=== PATIENT | male | born 1950 | race Caucasian/White ===

== ENCOUNTER 2017-11-26 22:29 | Emergency (ER) | payer OTHER ==
[2017-11-26] MEDS ORDERED: NA CHLORIDE 0.9% 500 ML ONE (23:06)
[2017-11-26 23:36] LABS: Potassium 3.5 mEq/L (3.6-5.0)
[2017-11-26 23:43] LABS: Absolute Lymphocytes (CBC) 1.2 K/uL (0.7-4.9); Absolute Monocytes 0.5 K/uL (0.1-1.3); Absolute Neutrophil 3.8 K/uL (1.8-8.0); Basophils % 0.9 % (0-1.3); Eosinophils % 4.8 % (0-4.4); Hematocrit 45.1 % (39.6-49.0); Lymphocytes % 20.6 % (15.3-44.8); MCH 30.9 pg (27.0-35.0); MCV 90.6 fL (80-100); MPV 7.3 fL (7.6-11.3); Monocytes % 9.1 % (3.3-12.3); RBC Red Blood Cell Count 4.98 M/uL (4.33-5.43)
[2017-11-26 23:50] LABS: Protime INR 0.96
[2017-11-27 03:27] LABS: Potassium 3.8 mEq/L (3.6-5.0); Protime INR 1.01
--- NOTE | 2017-11-27 04:09 | ER ---
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 Transition of care: patient was not received from another setting of care. Onset of symptoms was November 26, 2017. Initial Sepsis Screen: Does the patient meet any 2 criteria? No. Patient's initial sepsis screen is negative. Does the patient have a suspected source of infection? No. Patient's initial sepsis screen is negative. Care prior to arrival: None. 22:41 Method Of Arrival: Ambulatory bb 22:41 Acuity: CORRINE 3 bb Triage Assessment: 22:44 Bite description: bite sustained to lateral side of left heel by a snake, animal bb information: vaccination(s) is not applicable. 11/27 04:09 General: Behavior is calm, cooperative, appropriate for age. tl1 Historical: - Allergies: 11/26 22:44 No Known Allergies; bb - Home Meds: 22:44 Caduet 10-20 mg oral tab 1 tab once daily [Active]; levothyroxine 25 mcg tab 1 tab once bb daily [Active]; aspirin 81 mg Oral chew 1 tab once daily [Active]; - PMHx: 22:44 Hypertension; Hyperlipidemia; tongue cancer; bb - PSHx: 22:44 Knee surgery; Tonsillectomy; bb - Immunization history:: Adult Immunizations up to date, Last tetanus immunization: up to date. - Social history:: Smoking status: Patient/guardian denies using tobacco, Patient uses alcohol, occasionally. Patient/guardian denies using street drugs. - Family history:: not pertinent. - Hospitalizations: : No recent hospitalization is reported. Screenin/11 02:00 Abuse screen: Denies threats or abuse. Denies injuries from another. Nutritional tl1 screening: No deficits noted. Tuberculosis screening: No symptoms or risk factors identified. Fall Risk IV access (20 points). Assessment: 11/26 22:55 Neuro: Level of Consciousness is awake, alert, obeys commands, Oriented to person, tl1 place, time, situation, Dietitian Therapeutic are equal bilaterally Moves all extremities. Cardiovascular: Denies chest pain. Respiratory: Airway is patent Trachea midline Respiratory effort is even, unlabored, Breath sounds are clear bilaterally. GI: Abdomen is non-distended, Bowel sounds present X 4 quads. Abd is soft and non tender X 4 quads. : No signs and/or symptoms were reported regarding the genitourinary system. EENT: No signs and/or symptoms were reported regarding the EENT system. Derm: Wound noted lateral side of left heel Other: puncture daisy noted to left heel with swelling noted to left ankle. Injury Description: Bite sustained to lateral side of left heel caused by a snake, is superficial, was sustained 30-60 minutes ago. 22:59 Reassessment: spoke to Donato Mitchell at [place] [facility] recommendations are: blood bb work including PT, PTT, INR, Fibrogen and repeat those in 4 to 6 hours, no NSAIDs, opiates for pain control, keep limb cardiac neutral, monitor for signs of coagulopathy and sympathetic, supportive care. Signs for use of antivenom are: 1. rapid swelling involving a major joint, 2. orthostatic hypotension, 3. evidence of coagulopathy. 11/27 01:56 General: Appears in no apparent distress. Pain: Denies pain. Derm: Skin is intact, Skin tl1 is pink, warm \T\ dry. 02:00 Reassessment: Patient and/or family updated on plan of care and expected duration. Pain tl1 level reassessed. Patient is alert, oriented x 3, equal unlabored respirations, skin warm/dry/pink. waiting on repeat labs to be drawn at 0300 Patient states feeling better. 03:38 Reassessment: Patient and/or family updated on plan of care and expected duration. Pain tl1 level reassessed. Patient is alert, oriented x 3, equal unlabored respirations, skin warm/dry/pink. Patient states feeling better. Patient states symptoms have improved. Derm: Wound noted lateral side of left heel Wound is no progression in size of wound or any additional swelling noted. Vital Signs: 11/26 22:44 BP 179 / 91; Pulse 83; Resp 20 S; Temp 98.5(O); Pulse Ox 98% on R/A; Weight 95.25 kg bb (R); Height 6 ft. 0 in. (182.88 cm) (R); Pain 2/10; 23:37 BP 143 / 80; Pulse 70; Resp 18; Pulse Ox 97% on R/A; mt 05 00:11 BP 152 / 90; Pulse 70; Resp 17; Pulse Ox 97% ; Pain 0/10; tl1 00:18 BP 138 / 86; Pulse 67; Resp 18; Pulse Ox 98% on R/A; mt 01:41 BP 119 / 76; Pulse 72; Resp 18; Pulse Ox 99% on R/A; mt 01:56 BP 133 / 84; Pulse 66; Resp 16; Pulse Ox 97% on R/A; Pain 0/10; tl1 03:38 BP 150 / 93; Pulse 68; Resp 16; Pulse Ox 98% ; Pain 0/10; tl1 11/26 22:44 Body Mass Index 28.48 (95.25 kg, 182.88 cm) bb ED Course: 11/26 22:34 Patient arrived in ED. al2 22:38 Maykel Canales MD is Attending Physician. rn 22:42 Triage completed. bb 22:44 Arm band placed on Patient placed in an exam room, on a stretcher, on pulse oximetry. bb Family accompanied patient. 23:12 Jeff Adame, CHRISTINE is Primary Nurse. ao 23:13 No provider procedures requiring assistance completed. Inserted saline lock: 20 gauge tl1 in right antecubital area, using aseptic technique. Blood collected. 11/27 03:38 No apparent distress. Appears to be sleeping. Awaiting lab results. tl1 03:45 Patient has correct armband on for positive identification. Pulse ox on. NIBP on. ao 04:09 IV discontinued, intact, bleeding controlled, No redness/swelling at site. Pressure tl1 dressing applied. Administered Medications: 11/26 23:12 Drug: NS 0.9% 500 ml Route: IV; Rate: bolus; Site: right antecubital; tl1 11/27 02:00 Follow up: IV Status: Completed infusion tl1 Outcome: 04:09 Discharge ordered by . rn 04:09 Discharged to home ambulatory, with family. tl1 04:09 Condition: good 04:09 Discharge instructions given to patient, family, Instructed on discharge instructions, follow up and referral plans. Demonstrated understanding of instructions, follow-up care, wound care. 04:13 Patient left the ED. tl1 Signatures: Gaviota Echeverria RN RN bb Maykel Canales MD MD rn Lasagna, Tonya, RN RN tl1 Jeff Adame RN RN ao Thompson, Shanelle Oconnell, Lupe juarez Corrections: (The following items were deleted from the chart) 11/26 23:05 22:55 Reassessment: poonam levin
--- NOTE | 2017-11-27 04:09 | EDPHYS ---
Physician Documentation [facility] Name: Jaya Perez Age: 67 yrs Sex: Male : 1950 Arrival Date: 11/26/2017 Time: 22:34 Bed 2 Private MD: ED Physician Maykel Canales HPI: 11/26 23:40 This 67 yrs old Male presents to ER via Ambulatory with complaints of Snake rn bite. 23:40 The patient was bitten on the lateral side of left heel, by a snake, in an unprovoked rn manner, outdoors. Onset: The symptoms/episode began/occurred 45 minute(s) ago. Severity of symptoms: At their worst the symptoms were very mild, in the emergency department the symptoms are unchanged. The patient has not experienced similar symptoms in the past. Reports walking, bitten by snake, small snake, thinks maybe copperhead, not captured, hit in left heel, mild swelling, denies pain/chest pain/sob/nausea/vomiting. . Historical: - Allergies: 22:44 No Known Allergies; bb - Home Meds: 22:44 Caduet 10-20 mg oral tab 1 tab once daily [Active]; levothyroxine 25 mcg tab 1 tab once bb daily [Active]; aspirin 81 mg Oral chew 1 tab once daily [Active]; - PMHx: 22:44 Hypertension; Hyperlipidemia; tongue cancer; bb - PSHx: 22:44 Knee surgery; Tonsillectomy; bb - Immunization history:: Adult Immunizations up to date, Last tetanus immunization: up to date. - Social history:: Smoking status: Patient/guardian denies using tobacco, Patient uses alcohol, occasionally. Patient/guardian denies using street drugs. - Family history:: not pertinent. - Hospitalizations: : No recent hospitalization is reported. ROS: 23:40 Constitutional: Negative for fever, chills, and weight loss, Eyes: Negative for injury, rn pain, redness, and discharge, Neck: Negative for injury, pain, and swelling, Cardiovascular: Negative for chest pain, palpitations, and edema, Respiratory: Negative for shortness of breath, cough, wheezing, and pleuritic chest pain, Abdomen/GI: Negative for abdominal pain, nausea, vomiting, diarrhea, and constipation, Back: Negative for injury and pain, MS/Extremity: Negative for deformity, Skin: + puncture wound left heel Neuro: Negative for headache, weakness, numbness, tingling, and seizure. Exam: 23:40 Constitutional: This is a well developed, well nourished patient who is awake, alert, rn and in no acute distress. Head/Face: Normocephalic, atraumatic. Eyes: Pupils equal round and reactive to light, extra-ocular motions intact. Lids and lashes normal. Conjunctiva and sclera are non-icteric and not injected. Cornea within normal limits. Periorbital areas with no swelling, redness, or edema. Cardiovascular: Regular rate and rhythm with a normal S1 and S2. No gallops, murmurs, or rubs. Normal PMI, no JVD. No pulse deficits. Respiratory: Lungs have equal breath sounds bilaterally, clear to auscultation and percussion. No rales, rhonchi or wheezes noted. No increased work of breathing, no retractions or nasal flaring. Abdomen/GI: Soft, non-tender, with normal bowel sounds. No distension or tympany. No guarding or rebound. No evidence of tenderness throughout. MS/ Extremity: Pulses equal, no cyanosis. Neurovascular intact. Full, normal range of motion. Equal circumference. + mild swelling at left lateral heel, no ecchymosis, swelling does not extend proximal to left ankle, no erythema, no active bleeding, single puncture wound. Neuro: Awake and alert, GCS 15, oriented to person, place, time, and situation. Cranial nerves II-XII grossly intact. Motor strength 5/5 in all extremities. Sensory grossly intact. Cerebellar exam normal. Normal gait. Vital Signs: 22:44 BP 179 / 91; Pulse 83; Resp 20 S; Temp 98.5(O); Pulse Ox 98% on R/A; Weight 95.25 kg bb (R); Height 6 ft. 0 in. (182.88 cm) (R); Pain 2/10; 23:37 BP 143 / 80; Pulse 70; Resp 18; Pulse Ox 97% on R/A; mt 05/11 00:11 BP 152 / 90; Pulse 70; Resp 17; Pulse Ox 97% ; Pain 0/10; tl1 00:18 BP 138 / 86; Pulse 67; Resp 18; Pulse Ox 98% on R/A; mt 01:41 BP 119 / 76; Pulse 72; Resp 18; Pulse Ox 99% on R/A; mt 01:56 BP 133 / 84; Pulse 66; Resp 16; Pulse Ox 97% on R/A; Pain 0/10; tl1 03:38 BP 150 / 93; Pulse 68; Resp 16; Pulse Ox 98% ; Pain 0/10; tl1 11/26 22:44 Body Mass Index 28.48 (95.25 kg, 182.88 cm) bb MDM: 11/26 22:38 Patient medically screened. rn 22:51 ED course: Local approx 2in of swelling at site on bite, single puncture, no systemic rn symptoms, no emergent crofab indicated at this point, ordered blood and will reeval. Elevating leg. 11/27 00:06 ED course: improved swelling, no abnormalities of blood work, poison control center rn does not recommend crofab at this time. will cont to monitor and reeval here.. 04:07 Differential diagnosis: snake bite, dry bite. 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 Counseling: I had a detailed discussion with the patient and/or guardian regarding: the historical points, exam findings, and any diagnostic results supporting the discharge/admit diagnosis, lab results, the need for outpatient follow up, to return to the emergency department if symptoms worsen or persist or if there are any questions or concerns that arise at home. Response to treatment: the patient's symptoms have markedly improved after treatment, the patient is now symptom free, and as a result, I will discharge patient. Special discussion: I discussed with the patient/guardian in detail that at this point there is no indication for admission to the hospital. It is understood, however, that if the symptoms persist or worsen the patient needs to return immediately for re-evaluation. ED course: repeat bloodwork normal, swelling has decreased, likely dry bite or more of an abrasion given single small puncture wound. 11/26 22:51 Order name: CBC with Diff; Complete Time: 23:52 rn 11/26 22:51 Order name: Basic Metabolic Panel; Complete Time: 23:52 rn 11/26 22:51 Order name: Protime (+inr); Complete Time: 23:52 rn 11/26 22:51 Order name: Ptt, Activated; Complete Time: 23:52 rn 11/26 22:51 Order name: D-Dimer; Complete Time: 23:52 rn 11/26 22:51 Order name: Fibrinogen; Complete Time: 23:52 rn 11/26 22:51 Order name: IV Start; Complete Time: 23:12 rn 11/26 22:51 Order name: EKG; Complete Time: 22:52 rn 11/27 02:09 Order name: BMP; Complete Time: 03:46 rn 11/27 02:09 Order name: PT-INR; Complete Time: 04:01 rn 11/27 02:09 Order name: Ptt, Activated; Complete Time: 04:01 rn 11/27 02:09 Order name: Fibrinogen; Complete Time: 04:01 rn 11/27 02:09 Order name: EKG; Complete Time: 02:10 rn 11/26 22:51 Order name: EKG - Nurse/Tech; Complete Time: 23:36 rn 11/27 02:09 Order name: EKG - Nurse/Tech; Complete Time: 03:07 rn Administered Medications: 11/26 23:12 Drug: NS 0.9% 500 ml Route: IV; Rate: bolus; Site: right antecubital; tl1 11/27 02:00 Follow up: IV Status: Completed infusion tl1 Disposition: 11/27/17 04:09 Discharged to Home. Impression: Struck in foot by snake, no complication. - Condition is Stable. - Discharge Instructions: Snake Bite. - Medication Reconciliation Form, Thank You Letter, Antibiotic Education, Prescription Opioid Use form. - Follow up: Private Physician; When: As needed; Reason: Recheck today's complaints, Re-evaluation by your physician. - Problem is new. - Symptoms have improved. Signatures: Dispatcher [employer] EDMS Gaviota Echeverria RN RN bb Nieto, Roman, MD MD rn Lasagna, Tonya, RN RN tl1 Corrections: (The following items were deleted from the chart) 04:13 04:09 11/27/2017 04:09 Discharged to Home. Impression: Struck in foot by snake, no tl1 complication. Condition is Stable. Forms are Medication Reconciliation Form, Thank You Letter, Antibiotic Education, Prescription Opioid Use. Follow up: Private Physician; When: As needed; Reason: Recheck today's complaints, Re-evaluation by your physician. Problem is new. Symptoms have improved. rn
--- NOTE | 2017-11-27 10:28 | EKG ---
Test Date: 2017-11-27 Test Time: 02:47:35 Wildlife Refuge Specialist: MARCE MEASUREMENT RESULTS: Intervals: Rate: 61 WI: 138 QRSD: 92 QT: 420 QTc: 422 [place]: P: 67 WI: 138 QRS: 13 T: 20 INTERPRETIVE STATEMENTS: Normal sinus rhythm Nonspecific ST abnormality Abnormal ECG Compared to ECG 11/26/2017 23:11:45 Atrial premature complex(es) no longer present ST (T wave) deviation still present Electronically Signed On 11-27-17 10:27:04 CDT by Floyd Cook
--- NOTE | 2017-11-27 10:28 | EKG ---
Test Date: 2017-11-26 Test Time: 23:11:45 Bundle Cutter: MARCE MEASUREMENT RESULTS: Intervals: Rate: 66 NM: 142 QRSD: 94 QT: 394 QTc: 413 [place]: P: 64 NM: 142 QRS: 0 T: 7 INTERPRETIVE STATEMENTS: Sinus rhythm with premature atrial complexes Nonspecific ST abnormality Abnormal ECG No previous ECG available for comparison Electronically Signed On 11-27-17 10:27:06 CDT by Floyd Cook
== END 2017-11-27 04:13 | disposition home or self-care (01) ==
LOC: ER 22:29
DX: S90.872A Other superficial bite of left foot, initial encounter (principal); W59.11XA Bitten by nonvenomous snake, initial encounter; Y93.89 Activity, other specified; Y92.9 Unspecified place or not applicable; I10 Essential (primary) hypertension; Z79.82 Long term (current) use of aspirin
CPT/HCPCS: 36415; 80048; 85025; 85379; 85384; 85610; 85730; 93005; 96360; 96361; 99284